=== PATIENT | male | born 1995 | race American Indian/Alaskan Native ===

== ENCOUNTER 2017-01-11 04:15 | Emergency (ER) | payer SELFPAY ==
[2017-01-11 04:15] VITALS: BMI 22.1
[2017-01-11 04:38] VITALS: TEMP 98.5
--- NOTE | 2017-01-11 05:49 | C.PDOC ---
History Of Present Illness 21 year old male presents to the ED via EMS requesting detox. Patient admits to using Crystal Meth prior to arrival. Patient reports he walked up to an ambulance and requested to be taken to a hospital because "I've been taking too many drugs." Patient denies physical complaints, suicidal ideations, or homicidal ideations. Time Seen by Provider: 01/11/17 04:47 Chief Complaint (Nursing): Psychiatric Evaluation History Per: Patient History/Exam Limitations: no limitations Onset/Duration Of Symptoms: Hrs Current Symptoms Are (Timing): Still Present Suicide/Self Injury Attempted (Context): None Modifying Factor(s): Other (Crystal Meth ) Associated Symptoms: denies: Suicidal Thoughts Involuntary Hold By: None Recent travel outside of the [place]: No Past Medical History Reviewed: Historical Data, Nursing Documentation, Vital Signs Vital Signs: Last Vital Signs Temp 98.5 F 01/11/17 06:24 Pulse 90 01/11/17 06:24 Resp 20 01/11/17 06:24 BP 140/87 01/11/17 06:24 Pulse Ox 98 01/11/17 06:24 - Medical History PMH: Anxiety, Bipolar Disorder, Depression Family History: States: Unknown Family Hx - Social History Hx Tobacco Use: Yes Hx Alcohol Use: Yes Hx Substance Use: Yes (crystal meth) - Immunization History Hx Tetanus Toxoid Vaccination: No Hx Influenza Vaccination: No Hx Pneumococcal Vaccination: No Review Of Systems Constitutional: Negative for: Fever, Chills Cardiovascular: Negative for: Chest Pain, Palpitations Respiratory: Negative for: Cough, Shortness of Breath Gastrointestinal: Negative for: Nausea, Vomiting Psych: Negative for: Suicidal ideation Physical Exam - Physical Exam Appears: Non-toxic, No Acute Distress Skin: Warm, Dry, No Rash Head: Atraumatic, Normacephalic, No Tenderness Eye(s): bilateral: Normal Inspection, PERRL, EOMI Oral Mucosa: Moist Neck: Supple Chest: Symmetrical, No Deformity Cardiovascular: Rhythm Regular (patient is tachycardic ), No Murmur Respiratory: No Rales, No Rhonchi, No Wheezing, Other (clear to auscultation bilaterally ) Gastrointestinal/Abdominal: Soft, No Tenderness, No Distention, No Guarding, No Rebound Extremity: Normal ROM, No Tenderness Neurological/Psych: Oriented x3 ED Course And Treatment O2 Sat by Pulse Oximetry: 97 (RA) Pulse Ox Interpretation: Normal Progress Note: Pt is stable in NAD, pt called [facility] to pick him up from ED. Pt is being dc with friend Medical Decision Making Medical Decision Making: Discussed with patient that there are no detox available for Crystal Meth use. Patient was advised to follow up with outpatient detox. Disposition Counseled Patient/Family Regarding: Diagnosis, Need For Followup, Rx Given - Disposition Referrals: [facility] [Outside] Disposition: HOME/ ROUTINE Disposition Time: 05:47 Condition: STABLE Additional Instructions: please follwo up in clinic for outpatient Drtox Return to ER if worse Instructions: Polysubstance Abuse (ED) Forms: [employer] (Haitian) - POA Present On Arrival: None - Clinical Impression Clinical Impression: Substance abuse - PA / NURSING OFFICER / Resident Statement MD/DO has reviewed & agrees with the documentation as recorded. - Scribe Statement The provider has reviewed the documentation as recorded by the Scribe Rosalba Diaz All medical record entries made by the Scribe were at my direction and personally dictated by me. I have reviewed the chart and agree that the record accurately reflects my personal performance of the history, physical exam, medical decision making, and the department course for this patient. I have also personally directed, reviewed, and agree with the discharge instructions and disposition.
[2017-01-11 06:25] VITALS: BP 140/87; PULSE 90; RESP 20
[2017-01-12 03:11] VITALS: O2SAT 97
== END 2017-01-11 06:10 | disposition home or self-care (01) ==
LOC: C.ER 04:15
DX: F19.10 Other psychoactive substance abuse, uncomplicated (principal)

== ENCOUNTER 2017-04-25 08:37 | Emergency (ER) | payer SELFPAY ==
[2017-04-25 08:37] VITALS: BMI 22.1
[2017-04-25 08:47] VITALS: PULSE 62; RESP 18; TEMP 99; O2SAT 100
--- NOTE | 2017-04-25 08:57 | C.PDOC ---
History Of Present Illness 21-year-old male, presents to the emergency department with complaints of substance abuse. Patient states he "shot" crystal meth at 04:00 this morning, after which he developed a fast heart rate, resulting in him coming to ED for evaluation. Denies vomiting/diarrhea, SI/HI. Time Seen by Provider: 04/25/17 08:48 Chief Complaint (Nursing): Substance Abuse History Per: Patient History/Exam Limitations: no limitations Onset/Duration Of Symptoms: Days Current Symptoms Are (Timing): Still Present Past Medical History Reviewed: Historical Data, Nursing Documentation, Vital Signs Vital Signs: Last Vital Signs Temp 99.0 F 04/25/17 08:40 Pulse 62 04/25/17 08:40 Resp 18 04/25/17 08:40 BP 140/80 04/25/17 09:09 Pulse Ox 100 04/25/17 11:20 - Medical History PMH: Anxiety, Bipolar Disorder, Depression Family History: States: No Known Family Hx - Social History Hx Tobacco Use: Yes Hx Alcohol Use: Yes Hx Substance Use: Yes (crystal meth) - Immunization History Hx Tetanus Toxoid Vaccination: No Hx Influenza Vaccination: No Hx Pneumococcal Vaccination: No Review Of Systems Constitutional: Negative for: Fever, Chills Cardiovascular: Negative for: Chest Pain Respiratory: Negative for: Shortness of Breath Gastrointestinal: Negative for: Vomiting Skin: Negative for: Rash Neurological: Negative for: Weakness Psych: Negative for: Psychosis, Suicidal ideation Physical Exam - Physical Exam Appears: Well, Non-toxic, No Acute Distress Skin: Normal Color, Warm, Dry, No Rash Head: Normacephalic Eye(s): bilateral: PERRL Nose: Normal Oral Mucosa: Moist Lips: Normal Appearing Neck: Normal ROM Chest: Symmetrical Cardiovascular: Rhythm Regular (Tachycardia), No Murmur Respiratory: Normal Breath Sounds, No Accessory Muscle Use Extremity: Normal ROM, No Deformity, No Swelling Neurological/Psych: Oriented x3, Normal Speech ED Course And Treatment ECG: Interpreted By Me ECG Rhythm: Sinus Rhythm ECG Interpretation: Normal Rate From EC O2 Sat by Pulse Oximetry: 100 (RA) Pulse Ox Interpretation: Normal Disposition Counseled Patient/Family Regarding: Diagnosis, Need For Followup - Disposition Referrals: [facility] [Outside] [facility] [Outside] Disposition: HOME/ ROUTINE Disposition Time: 08:56 Condition: GOOD Instructions: Drug Abuse and Drug Addiction (DC) Forms: [facility] ([place]) - Clinical Impression Clinical Impression: Drug abuse, Drug effect - Scribe Statement The provider has reviewed the documentation as recorded by the Scribe (Promise Juarez) All medical record entries made by the Scribe were at my direction and personally dictated by me. I have reviewed the chart and agree that the record accurately reflects my personal performance of the history, physical exam, medical decision making, and the department course for this patient. I have also personally directed, reviewed, and agree with the discharge instructions and disposition.
[2017-04-25 09:11] VITALS: BP 140/80
--- NOTE | 2017-04-27 12:37 | CARD ---
APPROVED REPORT EKG Measurement Heart [id number] <Conclusion> Normal sinus rhythm Normal ECG
== END 2017-04-25 09:21 | disposition home or self-care (01) ==
LOC: C.ER 08:37
DX: F19.10 Other psychoactive substance abuse, uncomplicated (principal); T43.625A Adverse effect of amphetamines, initial encounter; Z72.0 Tobacco use

== ENCOUNTER 2017-10-27 07:03 | Inpatient (IN) | payer MEDICAID ==
[2017-10-27 07:04] VITALS: BMI 22.1
[2017-10-27 08:26] LABS: BASO # 0.1 K/uL (0.0-0.2); EOS # 0.1 K/uL (0.0-0.7); EOS % 0.8 % (0.0-4.0); HEMOGLOBIN 15.5 g/dL (12.0-18.0); LYMPH # 2.9 K/uL (1.0-4.3); LYMPH % 31.2 % (20.0-40.0); MEAN CELL VOLUME 89.3 fL (80.0-94.0); MEAN CORPUSCULAR HEMOGLOBIN 30.9 pg (27.0-31.0); MEAN CORPUSCULAR HGB CONC 34.6 g/dL (33.0-37.0); MEAN PLATELET VOLUME 8.3 fL (7.2-11.7); MONO # 0.7 K/uL (0.0-0.8); MONO % 7.3 % (0.0-10.0); NEUT # 5.6 K/uL (1.8-7.0); NEUT % 59.7 % (50.0-75.0); NRBC % 0.1 % (0.0-2.0); RBC 5.01 Mil/uL (4.40-5.90); WHITE BLOOD COUNT 9.3 K/uL (4.8-10.8)
--- NOTE | 2017-10-27 08:40 | C.PDOC ---
History Of Present Illness 21 y/o male presents to ED for evaluation of depression worse since this morning with thoughts of overdosing. Patient denies Homicidal ideation, auditory or visual hallucinations. No other physical complaints at this time. Time Seen by Provider: 10/27/17 07:19 Chief Complaint (Nursing): Psychiatric Evaluation History Per: Patient History/Exam Limitations: no limitations Onset/Duration Of Symptoms: Days Current Symptoms Are (Timing): Still Present Suicide/Self Injury Attempted (Context): None Associated Symptoms: Depression Past Medical History Reviewed: Historical Data, Nursing Documentation, Vital Signs Vital Signs: Last Vital Signs Temp 99.6 F 10/27/17 07:09 Pulse 100 H 10/27/17 07:09 Resp 18 10/27/17 07:09 BP 148/99 H 10/27/17 07:09 Pulse Ox 100 10/27/17 07:09 - Medical History PMH: Anxiety (denies 10/27/17), Bipolar Disorder (denies 10/27/17), Depression ( denies 10/27/17) Surgical History: No Surg Hx Family History: States: No Known Family Hx - Social History Hx Tobacco Use: Yes Hx Alcohol Use: Yes Hx Substance Use: Yes (last use yesterday) - Immunization History Hx Tetanus Toxoid Vaccination: No Hx Influenza Vaccination: No Hx Pneumococcal Vaccination: No Review Of Systems Cardiovascular: Negative for: Chest Pain Gastrointestinal: Negative for: Nausea, Vomiting Skin: Negative for: Rash Psych: Positive for: Depression, Suicidal ideation. Negative for: Withdrawal Physical Exam - Physical Exam Appears: Non-toxic, Other (Flat affect) Skin: Warm, Dry, No Rash Head: Atraumatic, Normacephalic Eye(s): bilateral: Normal Inspection Oral Mucosa: Moist Neck: Supple Cardiovascular: Rhythm Regular Respiratory: Normal Breath Sounds, No Rales, No Rhonchi, No Wheezing Gastrointestinal/Abdominal: Soft, No Tenderness, No Guarding, No Rebound Neurological/Psych: Oriented x3, Normal Speech, Normal Cognition ED Course And Treatment - Laboratory Results Result Diagrams: 10/27/17 08:17 O2 Sat by Pulse Oximetry: 100 (RA) Pulse Ox Interpretation: Normal Progress Note: Blood work, Drug scree, UA ordered. Pending crisis evaluation Disposition - Disposition - Scribe Statement The provider has reviewed the documentation as recorded by the Scribrikki Nunez All medical record entries made by the Scribe were at my direction and personally dictated by me. I have reviewed the chart and agree that the record accurately reflects my personal performance of the history, physical exam, medical decision making, and the department course for this patient. I have also personally directed, reviewed, and agree with the discharge instructions and disposition.
[2017-10-27 08:42] LABS: ALB/GLOB RATIO 1.5 (1.0-2.1); ALBUMIN 5.1 g/dL (3.5-5.0); ALT/SGPT 22 U/L (21-72); AST/SGOT 41 U/L (17-59); BLOOD UREA NITROGEN 14 mg/dL (9-20); CALCIUM 9.8 mg/dl (8.6-10.4); GFR NON-AFRICAN AMERICAN > 60
[2017-10-27 09:42] LABS: SQUAMOUS EPITHIAL < 1 /hpf (0-5); URINE BACTERIA RARE (<OCC); URINE BILIRUBIN NEGATIVE (NEGATIVE); URINE BLOOD NEGATIVE (NEGATIVE); URINE CLARITY Clear (Clear); URINE COLOR Yellow (YELLOW); URINE GLUCOSE (UA) NORMAL (Normal); URINE LEUKOCYTE ESTERASE NEG Leu/uL (Negative); URINE PROTEIN 2+ mg/dL (NEGATIVE)
[2017-10-27 10:01] LABS: BARBITURATES, UR NEGATIVE (NEGATIVE); BENZODIAZEPINES, UR NEGATIVE (NEGATIVE); OPIATES, UR NEGATIVE (NEGATIVE); PHENCYCLIDINE, UR NEGATIVE (NEGATIVE)
--- NOTE | 2017-10-27 12:20 | PCM.BM ---
<Olena Laureano - Last Filed: 10/27/17 12:18> Treatment Plan Problems - Problems identified on initial assessmt Depression Date Initiated: 10/27/17 Time Initiated: 12:18 Assessment reference: NA Status: Active Treatment assets and liabiliti Patient Assests: cooperative, self-reliant, ADL independent, good support system Patient Liabilities: other (poor threshhold for frustration) - Milieu Protocol Maintain good personal hygiene: daily Encourage regular showers, daily Remind patient to perform daily oral care, daily Assist patient to perform ADL's Maintain personal safety: every shift Educate patient to report safety concerns to staff, every shift Monitor environment for contraband/sharps Medication safety: Monitor for expected outcome, potential side effects: every shift, Assess barriers to learning: every shift, Assess readiness for medication education: every shift <Tao Stonerafal - Last Filed: 10/28/17 11:36> - Diagnosis (1) Bipolar affective disorder, depressed, severe, with psychotic behavior Status: Acute Interventions: 10/28/17 11:36 * Assess/adjust medications daily and /or as needed * See patient on an individual basis 7x/week to assess level of manic behaviors and stability * Discuss risks, benefits, side effects and alternatives of medications * (2) Amphetamine use disorder, severe, dependence Status: Acute Interventions: 10/28/17 11:37 * Assess 7x/week regarding severity of withdrawal * Educate regarding risks, benefits, side effects and alternatives of medications * Use Motivational Interviewing for abstinence * Use CBT for relapse prevention * Medication management for withdrawal symptoms * Encourage medication assisted treatment * <Sherry Johnson - Last Filed: 10/28/17 13:27> Family Contact Family involvement: Famliy/SO not involved - Goals for Treatment Patient goals for treatment: "I need an IOP program." Discharge/Continuing Care - Education Needs Education Needs: Patient Medication, Patient Coping Skills - Discharge Discharge Criteria: No longer exhibiting s/s of withdrawal, Reduction of target symptoms Discharge to:: Home - Treatment Team Participation Discussed with Family/SO: No Was Patient/Family/SO present at Treatment Team Meeting: Yes
--- NOTE | 2017-10-27 15:54 | PCM.PSYCH ---
Initial Psychiatric Evaluation - Initial Psychiatric Evaluation Type of Admission: Voluntary Legal Status: Capacity Chief Complaint (in patient's own words): "Not focusing and suicidal thoughts" History of Present Illness and Precipitating Events: Pt is 21 years old, single, no kids, and lives in an apartment with her mother. Pt is currently unemployed. Pt is presenting for difficulty focusing as well as suicidal ideations. Pt's suicidal ideation has been present for over a week. Pt's suicidal thoughts have multifactorial causes--"Being [place], black, trying hard to care for my mom and sister, losing my job." Pt states that he lost his job a week ago in order to spend more time with his mother and sister. 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 Pt denies acting upon this current SI. Pt has had SI couple of times before. When he was 12 years old, he threatened to jump out of school window because he was afraid of his grandmother. Pt tried attempting by putting one foot out the window but denied completing it. He was sent to a psychiatrist because of this. His second attempt was when he was 18, when he tried to overdose on crystal meth by consuming "whole bag" of it. Pt states that he did not want to commit suicide, but merely wanted to see if it was possible. Pt is also presenting for trouble focusing. Around the same time he was sent to the psychiatrist for his first suicide attempt, he was diagnosed with ADHD, and was given medications for this. He does not know the name of the medication, and he states he remembers being given another medication as well, but does not remember the name or what it was for. Pt has been compliant on these two medications until the age of 18, when his physician and he did not refill his prescriptions. He has not taken these medications ever since. Ever since, pt states that he has troubles focusing on anything. Pt confirms depression, insomnia feelings of guilt, fatigue, and concentration problems. Pt denies any changes in appetite. Pt denies manic episodes, but states that he is easily distracted and has racing thoughts and is unsure of how to control them. The racing thoughts vary widely. Pt confirms anxiety, and panic attacks--most recent was today with chest pain, SOB, and palpitations. Pt denies paranoia. Pt reports auditory hallucinations telling to hurt people. Pt smokes 2 cigarettes/day and 4 bags of marijuana/day. When asked for source of money to buy these, pt's friend lends him money to buy these drugs. Pt denies cocaine, heroin, or any other drug usage. Psych Hx: Unremarkable Traumatic Hx: Unremarkable Family Psych Hx: Pt's uncle has ADHD Medical Hx: Unremarkable Legal Hx: Unremarkable Pt's plan after discharge is to go back to being compliant with the medications he was given when he was a teenager. Past Psychiatric History - Past Psychiatric History Previous Treatment History: Inpatient Pertinent Medical Hx (Current Medical&Sleep Prob, Allergies): Allergies Allergy/AdvReac Type Severity Reaction Status Date / Time No Known Allergies Allergy Verified 01/11/17 04:38 Benztropine [Cogentin] 1 mg PO BID #60 tab 02/20/16 Divalproex [Depakote DR] 500 mg PO BID #60 tcp 02/20/16 Haloperidol [Haldol] 5 mg PO BID #60 tab 02/20/16 Review of Systems - Review of Systems All systems: reviewed and no additional remarkable complaints except - Psychiatric Psychiatric: As Per HPI, Abnormal Sleep Pattern, Anhedonia, Anxiety, Auditory Hallucinations, Depression, Difficulty Concentrating, Panic Attacks, Suicidal Ideation, Other (Guilt, fatigue, distractibility). absent: Change in Appetite, Hallucinations, Homicidal Ideation, Irritability, Paranoia, Visual Hallucinations, Tactile Hallucinations Mental Status Examination - Personal Presentation Personal Presentation: Looks stated age - Affect Affect: Constricted, Depressed - Motor Activity Motor Activity: Calm - Reliability in Providing Information Reliability in Providing Information: Fair - Speech Speech: Irrelevant, Other (Circumstantial) - Mood Mood: Depressed, Anxious - Formal Thought Process Formal Thought Process: Hallucinations, Circumstantial - Obsessions/Compulsions Obsessions: No Compulsions: No - Cognitive Functions Orientation: Person, Place, Situation, Time Sensorium: Alert Attention/Concentration: Attentive Abstract Thinking: [place] Estimate of Intelligence: Below average Judgement: Imparied, as evidence by: Poor judgement, Imparied, as evidence by: Lack of insight into illness - Risk Risk: Suicidal, Diminished functioning - Limitations Limitations: Living alone DSM 5 DX - DSM 5 DSM 5 Diagnosis: Bipolar depressed severe with psychotic features Amphetamine use disorder severe Cannabis use disorder severe - Recommended/Plan of Treatment Treatment Recommendations and Plan of Treatment: Bipolar depressed severe with psychotic features Amphetamine use disorder severe Cannabis use disorder severe Start supportive management As need medications All risks, benefits and alternatives of the meds discussed, and the pt agreed and understood. Attend groups and activities Individual therapy daily Psychoeducation and support daily Encourage compliance with meds and after care Refer to outpatient program Teach healthy lifestyle methods, i.e. diet, exercise, meditation Smoking cessation and patch if needed
--- NOTE | 2017-10-28 11:36 | PCM.PYCHPN ---
Psychiatric Progress Note - Psychiatric Progress Note Patient seen today, length of contact: 15 min Patient Chief Complaint: "Not focusing and suicidal thoughts" Problems Identified/Issues Discussed: Patient seen and evaluated, chart reviewed and discussed with the nurse. Pt reports depressed mood, and still reports irritability and agitation. Pt remained somewhat delusional and paranoid. He remained isolated and withdrawn, and confined to his room. She denies any auditory hallucinations, visual hallucinations, or any paranoia. Patient is compliant with medications and denies any side effects. Symptoms are improving but pt needs more time to stabilize. Support and psychoeducation given. Medication Change: Yes Medical Record Reviewed: Yes Mental Status Examination - Cognitive Function Orientation: Person, Place, Situation, Time Memory: Intact Attention: WNL Concentration: Poor Association: WNL Fund of Knowledge: Poor - Mood Mood: Depressed, Anxious - Affect Affect: Constricted, Depressed - Speech Speech: Soft - Formal Thought Process Formal Thought Process: Hallucinations, Circumstantial - Suicidal Ideation Suicidal Ideation: No - Homicidal Ideation Homicidal Ideation: No Goal/Treatment Plan - Goal/Treatment Plan Need for Continued Stay: Severe depression anxiety, Severe functional impairment Progress Toward Problem(s) and Goals/Treatment Plan: Bipolar depressed severe with psychotic features Amphetamine use disorder severe Cannabis use disorder severe Start supportive management As need medications All risks, benefits and alternatives of the meds discussed, and the pt agreed and understood. Attend groups and activities Individual therapy daily Psychoeducation and support daily Encourage compliance with meds and after care Refer to outpatient program Teach healthy lifestyle methods, i.e. diet, exercise, meditation Smoking cessation and patch if needed - Smoking Cessation Smoking Cessation Initiated: No
[2017-10-29 06:53] VITALS: O2SAT 98
--- NOTE | 2017-10-29 16:58 | PCM.PYCHPN ---
Psychiatric Progress Note - Psychiatric Progress Note Patient seen today, length of contact: 15 min Patient Chief Complaint: "Leave me alone" Problems Identified/Issues Discussed: The pt is seen, chart reviewed, case discussed with staff. Support given No new symptoms reported, improving slowly and needs more time No SEs from medications, but he is evasive Medication Change: Yes Medical Record Reviewed: Yes Mental Status Examination - Cognitive Function Orientation: Person, Place, Situation, Time Memory: Intact Attention: WNL Concentration: Poor Association: WNL Fund of Knowledge: Poor - Mood Mood: Depressed, Anxious - Affect Affect: Constricted, Depressed - Speech Speech: Soft - Formal Thought Process Formal Thought Process: Hallucinations, Circumstantial - Suicidal Ideation Suicidal Ideation: No - Homicidal Ideation Homicidal Ideation: No Goal/Treatment Plan - Goal/Treatment Plan Need for Continued Stay: Severe depression anxiety, Severe functional impairment Progress Toward Problem(s) and Goals/Treatment Plan: Continue medications Support and psychoeducation daily Attend groups and activities daily After care planning by KAYLI
[2017-10-30 06:44] VITALS: RESP 20
[2017-10-31 06:13] VITALS: BP 115/62; PULSE 57; TEMP 98.4
--- NOTE | 2017-10-31 10:46 | PCM.PYCHDC ---
Mental Status Examination - Mental Status Examination Orientation: Person, Place, Situation, Time Memory: Intact Mood: Neutral Affect: Constricted Speech: Soft Attention: WNL Concentration: WNL Association: WNL Fund of Knowledge: WNL Formal Thought Process: No Impairment Description of patient's judgement and insight: good, fair Psychotic Thoughts and Behaviors: denies any AVH Suicidal Ideation: No Current Homicidal Ideation?: No Discharge Summary - Discharge Note Reason for Hospitalization: Pt is 21 years old, single, no kids, and lives in an apartment with her mother. Pt is currently unemployed. Pt is presenting for difficulty focusing as well as suicidal ideations. Pt's suicidal ideation has been present for over a week. Pt's suicidal thoughts have multifactorial causes--"Being [place], black, trying hard to care for my mom and sister, losing my job." Pt states that he lost his job a week ago in order to spend more time with his mother and sister. 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 Pt denies acting upon this current SI. Pt has had SI couple of times before. When he was 12 years old, he threatened to jump out of school window because he was afraid of his grandmother. Pt tried attempting by putting one foot out the window but denied completing it. He was sent to a psychiatrist because of this. His second attempt was when he was 18, when he tried to overdose on crystal meth by consuming "whole bag" of it. Pt states that he did not want to commit suicide, but merely wanted to see if it was possible. Pt is also presenting for trouble focusing. Around the same time he was sent to the psychiatrist for his first suicide attempt, he was diagnosed with ADHD, and was given medications for this. He does not know the name of the medication, and he states he remembers being given another medication as well, but does not remember the name or what it was for. Pt has been compliant on these two medications until the age of 18, when his physician and he did not refill his prescriptions. He has not taken these medications ever since. Ever since, pt states that he has troubles focusing on anything. Pt confirms depression, insomnia feelings of guilt, fatigue, and concentration problems. Pt denies any changes in appetite. Pt denies manic episodes, but states that he is easily distracted and has racing thoughts and is unsure of how to control them. The racing thoughts vary widely. Pt confirms anxiety, and panic attacks--most recent was today with chest pain, SOB, and palpitations. Pt denies paranoia. Pt reports auditory hallucinations telling to hurt people. Pt smokes 2 cigarettes/day and 4 bags of marijuana/day. When asked for source of money to buy these, pt's friend lends him money to buy these drugs. Pt denies cocaine, heroin, or any other drug usage. Consultations:: List each consultation separately and include: 1. Reason for request. 2. Findings. 3. Follow-up Summary of Hospital Course include:: 1. Description of specific treatment plan utilized for patients during their course of treatmen. 2. Summarize the time- course for resolution of acute symptoms and/or regressed behaviors. 3. Describe issues identified and worked on during hospitalization. 4. Describe medication utilized. 5. Describe medical problems identified and treated. 6. Reassessment of suicide risk Summary of Hospital Course: Pt is 21 years old, single, no kids, and lives in an apartment with her mother. Pt is currently unemployed. Pt is presenting for difficulty focusing as well as suicidal ideations. Pt's suicidal ideation has been present for over a week. Pt's suicidal thoughts have multifactorial causes--"Being [place], black, trying hard to care for my mom and sister, losing my job." Pt states that he lost his job a week ago in order to spend more time with his mother and sister. 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 Pt denies acting upon this current SI. Pt has had SI couple of times before. When he was 12 years old, he threatened to jump out of school window because he was afraid of his grandmother. Pt tried attempting by putting one foot out the window but denied completing it. He was sent to a psychiatrist because of this. His second attempt was when he was 18, when he tried to overdose on crystal meth by consuming "whole bag" of it. Pt states that he did not want to commit suicide, but merely wanted to see if it was possible. Pt is also presenting for trouble focusing. Around the same time he was sent to the psychiatrist for his first suicide attempt, he was diagnosed with ADHD, and was given medications for this. He does not know the name of the medication, and he states he remembers being given another medication as well, but does not remember the name or what it was for. Pt has been compliant on these two medications until the age of 18, when his physician and he did not refill his prescriptions. He has not taken these medications ever since. Ever since, pt states that he has troubles focusing on anything. Pt confirms depression, insomnia feelings of guilt, fatigue, and concentration problems. Pt denies any changes in appetite. Pt denies manic episodes, but states that he is easily distracted and has racing thoughts and is unsure of how to control them. The racing thoughts vary widely. Pt confirms anxiety, and panic attacks--most recent was today with chest pain, SOB, and palpitations. Pt denies paranoia. Pt reports auditory hallucinations telling to hurt people. Pt smokes 2 cigarettes/day and 4 bags of marijuana/day. When asked for source of money to buy these, pt's friend lends him money to buy these drugs. Pt denies cocaine, heroin, or any other drug usage. Psych Hx: Unremarkable Traumatic Hx: Unremarkable Family Psych Hx: Pt's uncle has ADHD Medical Hx: Unremarkable Legal Hx: Unremarkable Pt's plan after discharge is to go back to being compliant with the medications he was given when he was a teenager. - Diagnosis (1) Bipolar affective disorder, depressed, severe, with psychotic behavior Current Visit: Yes Status: Acute (2) Amphetamine use disorder, severe, dependence Current Visit: Yes Status: Acute - Final Diagnosis (DSM 5) Condition upon Discharge: GOOD Disposition: HOME/ ROUTINE Follow-up Treatment Plan: Bipolar depressed severe with psychotic features Amphetamine use disorder severe Cannabis use disorder severe Start supportive management As need medications All risks, benefits and alternatives of the meds discussed, and the pt agreed and understood. Attend groups and activities Individual therapy daily Psychoeducation and support daily Encourage compliance with meds and after care Refer to outpatient program Teach healthy lifestyle methods, i.e. diet, exercise, meditation Smoking cessation and patch if needed Prescriptions/Medication Reconciliation: Sertraline [Zoloft] 100 mg PO DAILY #30 tab traZODone [Desyrel] 50 mg PO HS PRN #30 tab PRN Reason: Insomnia
== END 2017-10-31 11:06 | disposition home or self-care (01) | DRG 885 ==
LOC: C.ER 07:03 → C.5E 10:27
PROVIDERS: ADMIT Psychiatry & Neurology Psychiatry; ATTEND Psychiatry & Neurology Psychiatry
PROC: GZHZZZZ Group Psychotherapy (ICD-10-PCS; principal; 2017-10-27)
PROC: GZ56ZZZ Individual Psychotherapy, Supportive (ICD-10-PCS; 2017-10-27)
DX: F31.5 Bipolar disorder, current episode depressed, severe, with psychotic features (principal); R45.851 Suicidal ideations; G47.00 Insomnia, unspecified; F90.9 Attention-deficit hyperactivity disorder, unspecified type; F17.210 Nicotine dependence, cigarettes, uncomplicated; F12.10 Cannabis abuse, uncomplicated; F15.10 Other stimulant abuse, uncomplicated; F41.0 Panic disorder [episodic paroxysmal anxiety]

== ENCOUNTER 2018-05-15 06:57 | Emergency (ER) | payer MEDICAID, OTHER ==
[2018-05-15 06:58] VITALS: BMI 22.1
[2018-05-15] MEDS ORDERED: Sodium Chloride 0.9% 1,000 ML IV ONE (07:36)
[2018-05-15 08:06] VITALS: BP 147/73; PULSE 92; RESP 18; TEMP 98.4; O2SAT 98
--- NOTE | 2018-05-15 09:09 | C.PDOC ---
History Of Present Illness 22 y/o male brought to ER by ambulance complaining of feeling anxious after he used 2 bags of cocaine. Patient states that he sniffed the cocaine. Patient denies having suicidal ideation, homicidal ideation, fever,chills, CP, and SOB. Time Seen by Provider: 05/15/18 07:19 Chief Complaint (Nursing): Substance Abuse History Per: Patient History/Exam Limitations: no limitations Onset/Duration Of Symptoms: Hrs Current Symptoms Are (Timing): Still Present Severity: Moderate Past Medical History Reviewed: Historical Data, Nursing Documentation, Vital Signs Vital Signs: Last Vital Signs Temp 98.4 F 05/15/18 08:06 Pulse 92 H 05/15/18 08:06 Resp 18 05/15/18 08:06 BP 147/73 05/15/18 08:06 Pulse Ox 98 05/15/18 08:06 - Medical History PMH: Anxiety, Bipolar Disorder, Depression, HIV (dx 2 days ago), Sexually Transmitted Disease Denies: Asthma, Diabetes, Hepatitis, HTN, Chronic Kidney Disease, Seizures Surgical History: No Surg Hx - [facility] Procedures GROUP PSYCHOTHERAPY (03/13/18) INDIV PSYCHOTHERAPY FOR SUBSTANCE ABUSE, MOTIVATION ENHANCE (03/13/18) INDIVIDUAL PSYCHOTHERAPY, SUPPORTIVE (03/13/18) Family History: States: No Known Family Hx - Social History Hx Tobacco Use: Yes Hx Alcohol Use: Yes (social) Hx Substance Use: Yes (since 18 yrs old, IV meth) - Immunization History Hx Tetanus Toxoid Vaccination: No Hx Influenza Vaccination: No Hx Pneumococcal Vaccination: No Review Of Systems Except As Marked, All Systems Reviewed And Found Negative. Constitutional: Negative for: Fever, Chills Cardiovascular: Negative for: Chest Pain Respiratory: Negative for: Shortness of Breath Psych: Positive for: Anxiety. Negative for: Suicidal ideation Physical Exam - Physical Exam Appears: Non-toxic, No Acute Distress Skin: Normal Color, Warm, Dry Head: Atraumatic, Normacephalic Eye(s): bilateral: Normal Inspection Nose: Normal Oral Mucosa: Moist Neck: Supple Chest: Symmetrical Cardiovascular: Rhythm Regular Respiratory: Normal Breath Sounds, No Rales, No Rhonchi, No Wheezing Gastrointestinal/Abdominal: Normal Exam, Soft, No Tenderness, No Guarding, No Rebound Neurological/Psych: Oriented x3, Normal Speech ED Course And Treatment O2 Sat by Pulse Oximetry: 98 (RA) Pulse Ox Interpretation: Normal Disposition - Disposition Referrals: [facility] [Outside] [facility] [Outside] Disposition: HOME/ ROUTINE Disposition Time: 07:50 Condition: GOOD Additional Instructions: GASTON GUEVARA, thank you for letting us take care of you today. The emergency medical care you received today was directed at your acute symptoms. If you were prescribed any medication, please fill it and take as directed. It may take several days for your symptoms to resolve. Return to the Emergency Department if your symptoms worsen, do not improve, or if you have any other problems. Please contact your doctor or call one of the physicians/clinics you have been referred to that are listed on the Patient Visit Information form that is included in your discharge packet. Bring any paperwork you were given at discharge with you along with any medications you are taking to your follow up visit. Our treatment cannot replace ongoing medical care by a primary care provider outside of the emergency department. Thank you for allowing the [facility] team to be part of your care today. Follow up with our clinic this week for outpatient care and management. Instructions: Drug Abuse and Drug Addiction (DC) Forms: [facility] (Sinhala) - Clinical Impression Clinical Impression: Drug abuse - Scribe Statement The provider has reviewed the documentation as recorded by the Melissaibe Hai Suarez Provider Attestation: All medical record entries made by the Melissaibe were at my direction and personally dictated by me. I have reviewed the chart and agree that the record accurately reflects my personal performance of the history, physical exam, medical decision making, and the department course for this patient. I have also personally directed, reviewed, and agree with the discharge instructions and disposition.
== END 2018-05-15 08:20 | disposition home or self-care (01) ==
LOC: C.ER 06:57
DX: F19.10 Other psychoactive substance abuse, uncomplicated (principal); Z72.0 Tobacco use